=== PATIENT | female | born 1990 | race Caucasian/White ===

== ENCOUNTER 2017-04-03 00:27 | Emergency (ER) | payer SELFPAY ==
[2017-04-03] MEDS ORDERED: NORMAL SALINE 1000 ML 1,000 ML IV ONE (00:37)
[2017-04-03 01:23] LABS: ABSOLUTE BASOPHILS # (AUTO) 0.1 10^3/uL (0.0-0.2); ABSOLUTE EOSINOPHILS # (AUTO) 0.4 10^3/uL (0.0-0.6); ABSOLUTE LYMPHOCYTES (AUTO) 2.5 10^3/uL (0.5-4.7); ABSOLUTE MONOCYTES (AUTO) 0.6 10^3/uL (0.1-1.4); ABSOLUTE NEUT (AUTO) 7.4 10^3/uL (1.7-8.2); BASOPHILS % (AUTO) 0.7 % (0-2); EOSINOPHILS % (AUTO) 3.5 % (0-6); HEMATOCRIT 49.3 % (36.0-47.0); HEMOGLOBIN 16.6 g/dL (12.0-15.5); LYMPHOCYTES % (AUTO) 23.1 % (13-45); MEAN CORPUSCULAR HEMOGLOBIN 29.7 pg (27.0-33.4); MEAN CORPUSCULAR HGB CONC 33.7 g/dL (32.0-36.0); MEAN CORPUSCULAR VOLUME 88 fl (80-97); MONOCYTES % (AUTO) 5.5 % (3-13); PLATELET COUNT 256 10^3/uL (150-450); RED CELL DISTRIBUTION WIDTH 13.7 % (11.5-14.0); SEGMENTED NEUTROPHILS % (AUTO) 67.2 % (42-78); TOTAL CELLS COUNTED % (AUTO) 100 %
--- NOTE | 2017-04-03 01:53 | RADIOLOGY REPORT (SQ) ---
EXAM DESCRIPTION: CT HEAD WITHOUT CLINICAL HISTORY: fall loc + etoh COMPARISON: None available TECHNIQUE: Axial CT of the head obtained from the skull apex to the skull base without contrast. FINDINGS: No acute intracranial hemorrhage identified. No mass, mass effect, shift of the midline, abnormal extra-axial fluid collection or CT evidence of acute ischemic change identified. The ventricular system is unremarkable. No acute abnormalities of the supratentorial white matter, basal ganglia, cerebellum, or brainstem. Output mucosal thickening of the right maxillary sinus. Chronic appearing opacities in the mastoid air cells. No temporal bone fracture identified. No soft tissue contusion overlying the right mastoid. No skull fracture identified. Visualized orbits and globes are unremarkable. DLP:1162.97 mGy-cm IMPRESSION: 1. No acute intracranial abnormality by CT criteria. This exam was performed according to our departmental dose-optimization program, which includes automated exposure control, adjustment of the mA and/or kV according to patient size and/or use of iterative reconstruction technique.
--- NOTE | 2017-04-03 01:56 | RADIOLOGY REPORT (SQ) ---
EXAM DESCRIPTION: CT CERVICAL SPINE WITHOUT CLINICAL HISTORY: fall loc + etoh COMPARISON: None available TECHNIQUE: Axial CT of the cervical spine obtained without contrast. FINDINGS: Alignment of the cervical spine is maintained without evidence of subluxation. The atlantoaxial, atlantodental, and occipitoatlantal intervals are preserved. No fracture identified. Vertebral body height preserved. Prevertebral soft tissues are unremarkable. Intervertebral disc height preserved. Visualized skull base is intact. No fracture of the visualized facial bones. Mucosal thickening of the right maxillary sinus. Chronic appearing opacities in the right mastoid air cells without evidence of acute injury. Visualized thyroid is unremarkable. No cervical lymphadenopathy. No pneumothorax in the visualized lung apices. DLP: 634.57 mGy-cm IMPRESSION: 1. No acute fracture or subluxation of the cervical spine. This exam was performed according to our departmental dose-optimization program, which includes automated exposure control, adjustment of the mA and/or kV according to patient size and/or use of iterative reconstruction technique.
--- NOTE | 2017-04-03 01:57 | RADIOLOGY REPORT (SQ) ---
EXAM DESCRIPTION: CHEST PA/LAT CLINICAL HISTORY: fall . Loss of consciousness. EtOH. COMPARISON: None. FINDINGS: Frontal and lateral views of the chest. The cardiomediastinal silhouette has normal size and contour. No consolidation, pneumothorax, or pleural effusion. No displaced rib fractures identified. Upper abdominal soft tissues are unremarkable. IMPRESSION: 1. No acute pulmonary process identified.
--- NOTE | 2017-04-03 01:59 | RADIOLOGY REPORT (SQ) ---
EXAM DESCRIPTION: T SPINE AP/LAT CLINICAL HISTORY: fall . Loss of consciousness. COMPARISON: None. FINDINGS: 2 views of the thoracic spine. No acute fracture identified. No subluxation. Vertebral body height preserved throughout the visualized thoracic spine. Pedicles identified throughout. No widening of the paraspinous lines. No fracture visualized ribs. No abnormalities the mediastinum. IMPRESSION: 1. No acute abnormality of the thoracic spine by plain film criteria.
[2017-04-03 02:09] LABS: ALCOHOL 54 mg/dL (NONE DETECTED); ANION GAP 16 (5-19); BLOOD UREA NITROGEN 12 mg/dL (7-20); CALCIUM 9.6 mg/dL (8.4-10.2); CARBON DIOXIDE 24 mmol/L (22-30); CHLORIDE 111 mmol/L (98-107); GLUCOSE 89 mg/dL (75-110); POTASSIUM 4.3 mmol/L (3.6-5.0); SODIUM 150.7 mmol/L (137-145)
[2017-04-03] MEDS ORDERED: KETOROLAC TROMETHAMINE INJ/PF 30 MG/1 ML SDV IV ONE (02:13)
[2017-04-03] MEDS ORDERED: ONDANSETRON HCL INJ/PF 4 MG/2 ML SDV IV ONE (02:14)
--- NOTE | 2017-04-03 02:23 | ER Document Report ---
ED General - General Chief Complaint: Fall Stated Complaint: FALL/DIZZINESS Time Seen by Provider: 04/03/17 00:35 - HPI Patient complains to provider of: Fall dizziness Notes: Patient coming in after a fall. Patient was celebrating New Year's drinking alcohol patient states drinking heavily last few days does not remember falling however her boyfriend at bedside states the patient fell very hard to the floor. Bystanders perform CPR upon falling however upon EMS arrival patient was awake and responding to verbal command. Patient is complaining of hip pain neck pain back pain and anterior chest wall pain. Patient states no other medical history. Past Medical History - Social History Smoking Status: Current Every Day Smoker Chew tobacco use (# tins/day): No Frequency of alcohol use: Social Drug Abuse: Marijuana Family History: Reviewed & Not Pertinent Patient has suicidal ideation: No Patient has homicidal ideation: No Neurological Medical History: Reports: Hx Seizures Renal/ Medical History: Denies: Hx Peritoneal Dialysis Review of Systems - Review of Systems Constitutional: No symptoms reported EENT: No symptoms reported Cardiovascular: Syncope Respiratory: No symptoms reported Gastrointestinal: No symptoms reported Genitourinary: No symptoms reported Female Genitourinary: No symptoms reported Musculoskeletal: Other - Head pain back pain Skin: No symptoms reported Hematologic/Lymphatic: No symptoms reported Neurological/Psychological: No symptoms reported -: Yes All other systems reviewed and negative Physical Exam - Vital signs Vitals: Temp Pulse Resp BP Pulse Ox 98.6 F 90 16 125/92 H 98 04/03/17 00:27 04/03/17 00:27 04/03/17 00:27 04/03/17 00:27 04/03/17 00:27 Interpretation: Normal - General General appearance: Appears well, Alert - HEENT Head: Normocephalic, Atraumatic Eyes: Normal Pupils: PERRL Neck: Other - C-collar in place - Respiratory Respiratory status: No respiratory distress Chest status: Nontender Breath sounds: Normal Chest palpation: Normal - Cardiovascular Rhythm: Regular Heart sounds: Normal auscultation Murmur: No - Abdominal Inspection: Normal Distension: No distension Bowel sounds: Normal Tenderness: Nontender Organomegaly: No organomegaly - Back Back: Normal, Nontender - Extremities General upper extremity: Normal inspection, Nontender, Normal color, Normal ROM , Normal temperature General lower extremity: Normal inspection, Nontender, Normal color, Normal ROM , Normal temperature, Normal weight bearing. No: Belem's sign - Neurological Neuro grossly intact: Yes Cognition: Normal Orientation: AAOx4 Rebeca Coma Scale Eye Opening: Spontaneous Ste[place] Coma Scale Verbal: Oriented Ste[place] Coma Scale Motor: Obeys Commands Steuben Coma Scale Total: 15 Speech: Normal Motor strength normal: LUE, RUE, LLE, RLE Sensory: Normal - Psychological Associated symptoms: Normal affect, Normal mood - Skin Skin Temperature: Warm Skin Moisture: Dry Skin Color: Normal Course - Re-evaluation Re-evalutation: 04/03/17 02:55 Lab work shows dehydration elevated alcohol level CT scans and x-rays are negative for any signs of acute fracture. Patient feeling better after c- collar was removed. Patient was given a dose of Toradol. Patient was encouraged to curtail her drinking of alcohol and to improve her drinking of water and fluids. Patient states understanding was discharged home. - Vital Signs Vital signs: Temp Pulse Resp BP Pulse Ox 98.1 F 84 16 128/54 H 97 04/03/17 02:39 04/03/17 02:39 04/03/17 02:39 04/03/17 02:39 04/03/17 02:39 - Laboratory Result Diagrams: 04/03/17 01:10 04/03/17 01:10 Laboratory results interpreted by me: 04/03/17 04/03/17 01:10 01:10 WBC 11.0 H RBC 5.60 H Hgb 16.6 H Hct 49.3 H Sodium 150.7 H Chloride 111 H Discharge - Discharge Clinical Impression: Syncope Qualifiers: Syncope type: unspecified Qualified Code(s): R55 - Syncope and collapse Back pain Qualifiers: Back pain location: thoracic back pain Chronicity: unspecified Back pain laterality: unspecified Qualified Code(s): M54.6 - Pain in thoracic spine Condition: Good Disposition: HOME, SELF-CARE Instructions: Low Back Pain ([facility]), Syncopal Episode ([facility]) Additional Instructions: Take medication as prescribed. I would decrease her alcohol consumption the next few days. Please make sure you are drinking plenty of water is that this is more likely the reason that she passed out tonight. Follow-up with your primary care physician. He may also take Tylenol and Motrin for your pain. Prescriptions: Hydrocodone Bit/Acetaminophen [Hydrocodon-Acetaminophen 5-325] 1 each PO Q6 #14 tablet
[2017-04-03 02:39] VITALS: BP 128/54
--- NOTE | 2017-04-04 09:36 | EKG REPORT ---
SEVERITY:- NORMAL ECG - SINUS RHYTHM : Confirmed by: Christal Cardozo 04-Apr-2017 09:35:19
== END 2017-04-03 02:39 | disposition home or self-care (01) ==
LOC: ER 00:27
DX: M54.6 Pain in thoracic spine (principal); M54.2 Cervicalgia; R07.89 Other chest pain; R51 Headache; M25.559 Pain in unspecified hip; W19.XXXA Unspecified fall, initial encounter; E86.0 Dehydration; R55 Syncope and collapse; F17.200 Nicotine dependence, unspecified, uncomplicated; F12.10 Cannabis abuse, uncomplicated
CPT/HCPCS: 93005; 99285; 96374; 96375; 80307; 36415; 85025; 80048; 71046; 72070; 70450; 72125; 93010; J1885; J2405